=== PATIENT | female | born 1975 | race Caucasian/White ===

== ENCOUNTER 2024-07-09 00:44 | Emergency (ER) | payer BC, MEDICAID ==
[~2024-07-09] VITALS: Ht 154.9 cm; Wt 51.3 kg
[~2024-07-09 00:44] MED LIST: CITA-178 PO
[2024-07-09 00:48] VITALS: BP 114/62; PULSE 97; RESP 17; O2SAT 100
[2024-07-09] MEDS: zolpidem 5mg tablet PO ONE (01:43)
[2024-07-09] MEDS: mag hydrox/Alum hydrox/simeth 30ml oral suspension PO ONE (01:43)
[2024-07-09] MEDS: famotidine 20mg tablet PO ONE (01:43)
[2024-07-09] MEDS: diphenhydrAMINE 25mg capsule PO ONE (01:44)
[2024-07-09] MEDS: pantoprazole 40mg Tablet.DR PO ONE (01:44)
[2024-07-09 01:47] VITALS: TEMP 97.8
[2024-07-09] MEDS: QUEtiapine 25mg tablet PO ONE (02:04)
[2024-07-09] MEDS ORDERED: QUEtiapine 25mg tablet PO SCH (08:00)
[2024-07-09] MEDS ORDERED: LORA2TAB96 PO (09:26)
[2024-07-09] MEDS ORDERED: HYDR-3686 PO (09:27)
== END 2024-07-09 02:08 | disposition home or self-care (01) ==
LOC: ER 00:45
DX: G47.00 Insomnia, unspecified (principal); F41.9 Anxiety disorder, unspecified; F32.A Depression, unspecified; Z90.49 Acquired absence of other specified parts of digestive tract; Z88.0 Allergy status to penicillin; Z79.899 Other long term (current) drug therapy
CPT/HCPCS: 93005; 99284; Q0163

== ENCOUNTER 2024-07-09 08:49 | Emergency (ER) | payer BC ==
[~2024-07-09] VITALS: Ht 154.9 cm; Wt 47.0 kg
[2024-07-09 09:01] VITALS: BP 107/73; PULSE 79; RESP 15; O2SAT 99
[2024-07-09] MEDS ORDERED: LORA2TAB96 PO (09:26)
[2024-07-09] MEDS ORDERED: HYDR-3686 PO (09:27)
[2024-07-09 09:36] VITALS: TEMP 99.3
== END 2024-07-09 09:37 | disposition home or self-care (01) ==
LOC: ER 08:49
DX: G47.00 Insomnia, unspecified (principal); F41.9 Anxiety disorder, unspecified; F32.A Depression, unspecified; Z88.0 Allergy status to penicillin; Z90.49 Acquired absence of other specified parts of digestive tract; Z79.899 Other long term (current) drug therapy
CPT/HCPCS: 99283